=== PATIENT | male | born 1955 | race Caucasian/White ===

== ENCOUNTER → 2018-06-22 13:59 | Outpatient (CLI) | payer BC, SELFPAY | PROVIDERS: Visit Provider Family Medicine | DX: M16.51 Unilateral post-traumatic osteoarthritis, right hip (principal) ==

== ENCOUNTER → 2018-06-22 14:25 | Outpatient (CLI) | payer BC, SELFPAY ==
--- NOTE | 2018-06-22 | DI.RAD.S_ITS ---
PROCEDURE: XR HIP W PEL IF DONE RT 2V INDICATIONS: RIGHT HIP OSTEOARTHRITIS TECHNIQUE: AP view of the pelvis with lateral view of the right hip were obtained. COMPARISON: None. FINDINGS: Bones: No fractures or dislocations. There is mild to moderate degenerative change of the right hip joint as evidenced by periarticular sclerosis, osteophyte formation, and loss of superior right hip joint space. The visualized pelvic ring appears intact. Soft tissues: No suspicious soft tissue calcifications or masses. IMPRESSION: Mild to moderate degenerative change of the right hip. Dictated by: Santos Juárez M.D. on 06/22/2018 at 16:45 Approved by: Santos Juárez M.D. on 06/22/2018 at 16:49
== END ==
PROVIDERS: Visit Provider Family Medicine
DX: M16.51 Unilateral post-traumatic osteoarthritis, right hip (principal)
CPT/HCPCS: 73502

== ENCOUNTER → 2020-05-16 14:43 | Outpatient (CLI) | payer MEDICARE, SELFPAY ==
--- NOTE | 2020-05-16 14:51 | DI.ECHO.S_ITS ---
[place] [facility]---------+ [facility] +---------+ : : [address] : : : : [id number] : : : : Phone: [phone]---------+ Echocardiogram Report + + :Name: DAVID ANGUIANO Study Date: 05/16/2020 Height: 73 in : :[facility] ReadingLocation: Weight: 235 lb : : Gender: Male BSA: 2.3 m2 : :: 1955 Age: 64 yrs BP: 112/60 mmHg: :Reason For Study: ESSENTIAL HTN, MURMUR : : Performed By: Amandeep Ray : :Referring: MARIBEL RAMIREZ : + + Interpretation Summary The left ventricle is normal in size. Left ventricular ejection fraction is estimated to be 65 +/- 5%. The right ventricle is at the upper limits of normal in size. The right ventricular systolic function is normal. No significant valvular pathology seen. The IVC is of normal diameter and collapses greater than 50% with a sniff. This suggests a low right atrial pressure of 3 mm Hg. Procedure: A two-dimensional transthoracic echocardiogram with color flow and Doppler was performed. The study quality was technically adequate. There is no prior echocardiogram noted for this patient. The patient was in normal sinus rhythm during the exam. Left Ventricle: The left ventricle is normal in size. There is normal left ventricular wall thickness. The LVOT velocity is 1.44 m/s. The left ventricular outflow velocity with valsalva is 1.29. There is no thrombus. Left ventricular ejection fraction is estimated to be 65 +/- 5%. There are no focal wall motion abnormalities. Diastolic parameters suggest a relaxation abnormality of the left ventricle, consistent with probable normal filling pressures. Right Ventricle: The right ventricle is at the upper limits of normal in size. The right ventricular systolic function is normal. Atria: Both atria are normal in size. There is no Doppler evidence for an atrial septal defect. Mitral Valve: There is mild mitral annular calcification. The mitral valve leaflets are mildly calcified. There is trace mitral regurgitation. Aortic Valve: The aortic valve is trileaflet. There is discrete nodular thickening of the non- coronary cusp. The aortic valve is slightly calcified. There is minimally reduced leaflet mobility. There is no hemodynamically significant valvular aortic stenosis. No aortic regurgitation is present. Tricuspid Valve: The tricuspid valve is normal in structure and function. There is trace tricuspid regurgitation. The right ventricular systolic pressure is estimated to be at least 19 mmHg based on an estimated right atrial pressure of 3 mm Hg. Pulmonic Valve: The pulmonic valve is not well seen, but is grossly normal. There is no pulmonic valvular regurgitation. Great Vessels: The aortic root is normal size. The dimensions of the ascending aorta are normal. The pulmonary artery is normal size. The IVC is of normal diameter and collapses greater than 50% with a sniff. This suggests a low right atrial pressure of 3 mm Hg. Pericardium/ Pleura There is no pericardial effusion. There is no pleural effusion. MMode/2D Measurements & Calculations LVIDd: 4.8 cm LVOT diam: 2.2 cm LVIDs: 2.7 cm Ao root diam: 3.3 cm FS: 44.4 % asc Aorta Diam: 3.4 cm EPSS: 0.34 cm Ao Arch Diam (Prox Trans): 3.2 cm IVSd: 1.0 cm LVPWd: 0.96 cm LV william. diameter/BSA (cm/m^2): 2.1 LV sys. diameter/BSA (cm/m^2): 1.2 LA dimension: 3.8 cm RA long axis: 4.9 cm LA A2 area: 25.9 cm2 RA area: 15.8 cm2 LA A4 area: 17.1 cm2 RA vol: 43.8 ml LA length (vol): 5.3 cm RA : 19.0 ml/m2 LA vol: 71.3 ml IVC diam: 1.8 cm LA vol index: 30.9 ml/m2 RVD1 (basal): 4.5 cm RVD2 (mid): 4.5 cm TAPSE: 2.6 cm Doppler Measurements & Calculations Ao V2 max: 219.3 cm/sec LVOT Max Corbin: 144.2 cm/sec Ao V2 mean: 177.3 cm/sec LV V1 max P.3 mmHg Ao max P.2 mmHg LV V1 VTI: 31.0 cm Ao mean P.0 mmHg AJ(I,D): 2.6 cm2 Ao V2 VTI: 45.2 cm AJ(V,D): 2.5 cm2 sev ratio: 0.69 AJ indexed to BSA (cm^2/m^2): 1.1 MV E max corbin: 68.5 cm/sec TR max corbin: 198.6 cm/sec MV A max corbin: 97.5 cm/sec TR max P.8 mmHg MV E/A: 0.70 PA V2 max: 92.8 cm/sec Med Peak E' Corbin: 4.8 cm/sec PA V2 mean: 69.2 cm/sec E/E' med: 14.2 PA mean P.0 mmHg Lat Peak E' Corbin: 6.1 cm/sec PA pr(Accel): 41.3 mmHg E/E' lat: 11.2 E/e' average: 12.7 MV dec time: 0.29 sec SV(LVOT): 116.5 ml Reading Physician:06:07 PM
== END ==
PROVIDERS: PCP Family Medicine; Referring Provider Family Medicine; Visit Provider Family Medicine
DX: R01.1 Cardiac murmur, unspecified (principal); I10 Essential (primary) hypertension
CPT/HCPCS: 93306

== ENCOUNTER → 2020-12-05 08:31 | Outpatient (CLI) | payer MEDICARE, SELFPAY ==
[2020-12-05 20:19] LABS: Cholesterol 133 mg/dL (140-199); HDL Cholesterol 51 mg/dL (40-60); LDL Cholesterol Calculated 65 mg/dL (<100); Triglycerides 84 mg/dL (35-150)
== END ==
PROVIDERS: PCP Family Medicine; Visit Provider Family Medicine
DX: I10 Essential (primary) hypertension (principal); E78.2 Mixed hyperlipidemia; R01.1 Cardiac murmur, unspecified; E78.5 Hyperlipidemia, unspecified
CPT/HCPCS: 80061

== ENCOUNTER → 2021-05-18 09:29 | Outpatient (CLI) | payer MEDICARE, SELFPAY ==
[2021-05-19 20:32] LABS: HEMOLYSIS < 15 (0-50)
[2021-05-19 20:40] LABS: Alanine Aminotransferase 31 IU/L (<50); Albumin 4.5 g/dL (3.5-5.0); Albumin Globulin Ratio 1.4 (1.0-2.8); Alkaline Phosphatase 57 U/L (38-126); Aspartate Aminotransferase 31 IU/L (17-59); BUN Creatinine Ratio 22.9 (6-22); Bilirubin Total 0.7 mg/dL (0.2-1.3); Blood Urea Nitrogen 16 mg/dL (9-20); Carbon Dioxide 25 mmol/L (22-32); Chloride 107 mmol/L (98-107); Estimated Glomerular Filt Rate > 60.0 mL/min (>60); Globulin 3.2 g/dL (1.7-4.1); Glucose 103 mg/dL (80-110); Potassium 4.4 mmol/L (3.4-5.1); Sodium 137 mmol/L (137-145); Total Protein 7.7 g/dL (6.3-8.2)
[2021-05-19 20:41] LABS: Hemoglobin 13.6 g/dL (13.5-17.5); Mean Corpuscular HGB Conc 33.9 % (30-36); Mean Corpuscular Hemoglobin 28.9 PG (26-34); Mean Corpuscular Volume 85.1 fL (80-100); Platelet Count 220 X10^3/uL (150-400); Red Cell Distribution Width 14.1 % (11.6-14.8); White Blood Cell Count 4.9 X10^3/uL (4.5-11.0)
[2021-05-19 20:46] LABS: Neutrophils Absolute Manual 2646 /uL (3000-5900); RBC Morphology Normal Morphology; Total Cells Counted 100
[2021-05-19 22:50] LABS: Prostate Specific Antigen Scrn 0.757 ng/mL (0.1-4.0)
== END ==
PROVIDERS: PCP Family Medicine; Referring Provider Family Medicine; Visit Provider Family Medicine
DX: Z79.899 Other long term (current) drug therapy (principal); Z12.5 Encounter for screening for malignant neoplasm of prostate; E78.2 Mixed hyperlipidemia; I10 Essential (primary) hypertension; N40.0 Benign prostatic hyperplasia without lower urinary tract symptoms
CPT/HCPCS: 80053; 85025; G0103

== ENCOUNTER → 2021-10-19 09:10 | Outpatient (CLI) | payer MEDICARE, SELFPAY ==
[2021-10-19 20:17] LABS: Add Manual Diff / Slide Review NO; Basophils Absolute Auto 0 /uL (0-100); Basophils Percent Auto 0.5 % (0-2); Eosinophils Absolute Auto 100 /uL (0-450); Eosinophils Percent Auto 1.8 % (2-4); Hematocrit 41.8 % (41-53); Hemoglobin 14.3 g/dL (13.5-17.5); Lymphocytes Absolute Auto 1600 /uL (1100-4500); Lymphocytes Percent Auto 32.3 % (25-40); Mean Corpuscular HGB Conc 34.1 % (30-36); Mean Corpuscular Hemoglobin 29.4 PG (26-34); Mean Corpuscular Volume 86.1 fL (80-100); Monocytes Absolute Auto 600 /uL (0-900); Monocytes Percent Auto 11.4 % (3-14); Neutrophils Absolute Auto 2700 /uL (1500-7000); Platelet Count 212 X10^3/uL (150-400); Red Blood Cell Count 4.86 X10^6/uL (4.5-5.9); Red Cell Distribution Width 14.2 % (11.6-14.8)
[2021-10-19 20:28] LABS: Alanine Aminotransferase 27 IU/L (<50); Albumin 4.6 g/dL (3.5-5.0); Albumin Globulin Ratio 1.4 (1.0-2.8); Alkaline Phosphatase 57 U/L (38-126); Aspartate Aminotransferase 30 IU/L (17-59); BUN Creatinine Ratio 29.4 (6-22); Blood Urea Nitrogen 20 mg/dL (9-20); Calcium 9.7 mg/dL (8.4-10.2); Carbon Dioxide 26 mmol/L (22-32); Chloride 106 mmol/L (98-107); Cholesterol 153 mg/dL (140-199); Estimated Glomerular Filt Rate > 60 mL/min (>60); Globulin 3.2 g/dL (1.7-4.1); Glucose 97 mg/dL (80-110); HDL Cholesterol 56 mg/dL (40-60); HEMOLYSIS < 15 (0-50); LDL Cholesterol Calculated 77 mg/dL (<100); Potassium 4.6 mmol/L (3.4-5.1); Sodium 141 mmol/L (137-145); Total Protein 7.8 g/dL (6.3-8.2); Triglycerides 101 mg/dL (35-150)
== END ==
PROVIDERS: PCP Family Medicine; Visit Provider Family Medicine
DX: I10 Essential (primary) hypertension (principal); E78.2 Mixed hyperlipidemia; E78.5 Hyperlipidemia, unspecified; N40.0 Benign prostatic hyperplasia without lower urinary tract symptoms
CPT/HCPCS: 80053; 80061; 85025

== ENCOUNTER → 2022-03-22 09:42 | Outpatient (CLI) | payer MEDICARE, SELFPAY | PROVIDERS: PCP Family Medicine; Visit Provider Nurse Practitioner Family | DX: J02.9 Acute pharyngitis, unspecified (principal) | CPT/HCPCS: 87070 ==

== ENCOUNTER → 2023-01-10 10:48 | Outpatient (CLI) | payer MEDICARE, SELFPAY ==
--- NOTE | 2023-01-10 10:57 | DI.US.S_ITS ---
PROCEDURE: US ABDOMEN LIMITED INDICATIONS: RIGHT GROIN PAIN TECHNIQUE: Real-time focused scanning was performed of the abdomen, with image documentation. COMPARISON: None. FINDINGS: Within the right groin, there is a hernia, with the hernia orifice measuring 2.6 cm. The hernia contains bowel, with peristalsis seen. Valsalva maneuver was performed. IMPRESSION: Bowel containing right groin hernia. Surgical consultation is recommended. If clinically appropriate, a follow-up CT of the pelvis with at least IV contrast may also be helpful for additional diagnostic aid. Dictated by: Rhys Spangler M.D. on 01/10/2023 at 11:58 Approved by: Rhys Spangler M.D. on 01/10/2023 at 12:00
== END ==
PROVIDERS: PCP Physician Assistant; Referring Provider Family Medicine; Visit Provider Family Medicine
DX: K46.9 Unspecified abdominal hernia without obstruction or gangrene (principal); R10.31 Right lower quadrant pain
CPT/HCPCS: 76705

== ENCOUNTER → 2023-11-03 09:32 | Outpatient (CLI) | payer MEDICARE, SELFPAY ==
[2023-11-03 20:23] LABS: Alanine Aminotransferase 26 IU/L (<50); Albumin 4.1 g/dL (3.5-5.0); Albumin Globulin Ratio 1.5 (1.0-2.8); Alkaline Phosphatase 61 U/L (38-126); Aspartate Aminotransferase 30 IU/L (17-59); BUN Creatinine Ratio 30.4 (6-22); Bilirubin Total 1.1 mg/dL (0.2-1.3); Blood Urea Nitrogen 21 mg/dL (9-20); Calcium 9.9 mg/dL (8.4-10.2); Carbon Dioxide 21 mmol/L (22-32); Chloride 111 mmol/L (98-107); Cholesterol 102 mg/dL (140-199); Estimated Glomerular Filt Rate > 60 mL/min (>60); Globulin 2.8 g/dL (1.7-4.1); Glucose 102 mg/dL (80-110); HDL Cholesterol 50 mg/dL (40-60); HEMOLYSIS 17 (0-50); LDL Cholesterol Calculated 42 mg/dL (<100); Potassium 4.5 mmol/L (3.4-5.1); Sodium 139 mmol/L (137-145); Total Protein 6.9 g/dL (6.3-8.2); Triglycerides 49 mg/dL (35-150)
[2023-11-03 20:54] LABS: Prostate Specific Antigen Scrn 1.56 ng/mL (0.1-4.0)
== END ==
PROVIDERS: PCP Physician Assistant; Referring Provider Physician Assistant; Visit Provider Physician Assistant
DX: I10 Essential (primary) hypertension (principal); Z12.5 Encounter for screening for malignant neoplasm of prostate; E78.5 Hyperlipidemia, unspecified
CPT/HCPCS: 80053; 80061; G0103

== ENCOUNTER → 2025-01-01 14:02 | Outpatient (CLI) | payer MEDICARE, OTHER, SELFPAY | PROVIDERS: PCP Family Medicine; Visit Provider Family Medicine | DX: Z12.5 Encounter for screening for malignant neoplasm of prostate (principal) | CPT/HCPCS: G0103 ==